=== PATIENT | male | born 1990 | race Caucasian/White ===

== ENCOUNTER 2023-03-20 00:15 | Emergency (ER) | payer SELFPAY ==
[2023-03-20] MEDS ORDERED: Ibuprofen 600 MG Tab PO ONE (01:18)
== END 2023-03-20 01:51 | disposition home or self-care (01) ==
LOC: MW.ED 00:15
DX: S90.31XA Contusion of right foot, initial encounter (principal); Y29.XXXA Contact with blunt object, undetermined intent, initial encounter
CPT/HCPCS: 73630; 99283; A9270; 99281